=== PATIENT | male | born 1965 | race Caucasian/White ===

== ENCOUNTER 2022-12-14 17:42 | Inpatient (IN) | payer MEDICAID, SELFPAY ==
[2022-12-14 17:44] VITALS: BP 185/108; PULSE 108; RESP 18; TEMP 36.2; O2SAT 99; BMI 33.3
--- NOTE | 2022-12-14 17:56 | EDS_ITS ---
HPI History of Present Illness Chief Complaint: Cellulitis Detail of Chief Complaint: Right hand pain and swelling Informant: patient Narrative Narrative: Patient presents to the emergency department complaining of pain in his right hand as well as swelling. Patient states that his symptoms started when he woke up 3 days ago. Denies injury or trauma. He denies cuts or wounds to the hand. Patient went to urgent care and was referred to the ER. Patient denies any fever. He denies chills or sweats. Prior similar symptoms: No PFSH PFSH Medical History no medical history Home Medications NK 12/14/22 [History Last Taken Unknown] Allergy/AdvReac Type Severity Reaction Status Date / Time No Known Allergies Allergy Verified 12/14/22 17:44 Surgical History no surgical history Social History Smoking Status: Current every day smoker tobacco type: cigarettes ROS ROS ED Review of Systems ROS Unobtainable: other Constitutional Constitutional ED: Reports lethargy; Denies chills, fever(s), sweats or weight loss Eyes Eyes: Denies blurry vision, change in vision or diplopia ENT ENT ED: Denies rhinorrhea or sore throat Cardiovascular Cardiovascular: Denies chest pain, orthopnea or racing heartbeat Respiratory/Chest Respiratory/Chest: Denies cough, dyspnea, dyspnea on exertion, orthopnea or sputum Gastrointestinal Gastrointestinal: Denies abdominal pain, diarrhea, nausea or vomiting Genitourinary Genitourinary ED: Denies dysuria, hematuria or urinary frequency Musculoskeletal Musculoskeletal: Reports other Details: VascularRight hand-patient does have diffuse soft tissue swelling of the hand. He has significant tenderness over the third MCP joint dorsally and there is diffuse erythema to the hand. Patient having a hard time completely extending the digits of the hand secondary to pain and swelling. Distally. Patient has significant pain with passive extension of the middle finger. ; Denies arthralgias, back pain, myalgias or neck pain Integumentary Denies abscess, Abrasions or rash Neurologic Neurologic: Denies headache(s) or weakness Psychiatric Psychiatric: Denies anxiety, depression or suicidal thoughts Endocrine Endocrinology: Denies polydipsia, polyphagia or polyuria Hematologic/Lymphatic Hematologic/Lymphatic: Denies easy bleeding, easy bruising or lymphadenopathy Allergic/Immunologic Allergic/Immunologic ED: Denies mouth swelling, tongue swelling or urticaria EXAM Physical Exam Const Vital Signs: 12/14/22 17:44 Temperature 97.1 F L Temperature Source Temporal Pulse Rate 108 H Respiratory Rate 18 Blood Pressure 185/108 H Blood Pressure Mean 133 Pulse Ox 99 Oxygen Delivery Method Room Air MDM MDM MDM Narrative Medical decision making narrative: Patient presents to the emergency department with a swollen right hand x3 days. Clinically the hand looks infected. Patient had an IV line established. He was started on Zosyn IV. CBC with differential obtained showed a white count of 13.4, hemoglobin 15, hematocrit 45, platelets 262. Lactate was normal at 1.1. Chemistries unremarkable. Sed rate was 69 and CRP was 81.8. X-ray of the right hand obtained showed no foreign bodies or fractures. Patient case discussed with orthopedics on-call Dr. Dickerson who recommended admission for IV antibiotics and obtaining an MRI in the morning and he can see the patient in consultation. Case will be discussed with hospitalist to evaluate patient for admission. Lab Data Labs: Laboratory Results - last 24 hr 12/14/22 12/14/22 12/14/22 18:03 18:05 18:05 WBC 13.4 H RBC 4.62 Hgb 15.0 Hct 45.1 MCV 97.6 H MCH 32.5 H MCHC 33.3 RDW Std Deviation 49.2 H RDW Coeff of Lavern 13.6 Plt Count 262 MPV 10.2 Immature Gran % (Auto) 0.700 Neut % (Auto) 62.0 Lymph % (Auto) 21.9 Yancey % (Auto) 14.5 H Eos % (Auto) 0.4 Baso % (Auto) 0.5 Absolute Neuts (auto) 8.3 H Absolute Lymphs (auto) 2.94 Nucleated RBC % 0 Differential Comment SCANNED Diff Path Review February foll ESR 69 H Sodium 136 Potassium 4.0 Chloride 102 Carbon Dioxide 25.0 Anion Gap 9 BUN 22 H Creatinine 1.65 H Estim Creat Clear Calc 55.52 Est GFR (MDRD) Af Amer 56 L Est GFR (MDRD) Non-Af 46 L BUN/Creatinine Ratio 13.3 Glucose 122 H Lactic Acid 1.1 Calcium 10.2 H C-React Prot Ext Range 81.80 H Radiography Diagnostic Testing: Clinical Impression(s) from Imaging Studies Hand X-Ray 12/14/22 18:26 IMPRESSION: Minimal arthrosis of the hand. Electronically Signed: Merrill Platt DO at 18:48 EST , Discharge Plan Triage Chief Complaint: Cellulitis ED Provider: Maico Palomares Dx/Rx/DC Orders Clinical Impression: Cellulitis of hand, right, Extensor tenosynovitis of finger, Hand pain, right Prescriptions: No Action NK Primary Care Provider: Valentino Wright Referrals: Valentino Wright MD [Primary Care Provider] - Disposition Disposition: Acute Care Hospital [facility]
[2022-12-14 18:16] LABS: Absolute Lymphocyte Count 2.94 X10^3/uL (0.83-4.51); Absolute Neutrophil Count 8.3 X10^3/uL (2.0-7.7); Basophil# 0.07 X10^3/uL; Basophil% 0.5 % (0-1); Eosinophil# 0.05 X10^3/uL; Eosinophils% 0.4 % (0-5); Hematocrit 45.1 % (40-54); Lymphocyte # 2.94 X10^3/ul (0.83-4.51); Lymphocyte % 21.9 % (19-41); Mean Corp Hgb Conc 33.3 g/dL (32-36); Mean Corpuscular Hgb 32.5 pg (27.0-32.0); Mean Corpuscular Volume 97.6 fL (80-94); Mean Platelet Vol. 10.2 fl (6.2-12.0); Monocyte# 1.94 X10^3/uL; Monocyte% 14.5 % (0-10); NRBC Flagged by Analyzer 0 % (0-5); Neutrophil # 8.32 X10^3/uL (2.7-7.7); POSITIVE DIFFERENTIAL YES; Platelet Count 262 K/mm3 (150-450); RBC Distribution Width CV 13.6 % (11.6-14.6); RBC Distribution Width SD 49.2 fl (35.1-43.9); Red Blood Count 4.62 M/mm3 (4.6-6.2); White Blood Count 13.4 K/mm3 (4.4-11.0)
[2022-12-14 18:23] LABS: Differential Indicated SCAN CRITERIA MET
--- NOTE | 2022-12-14 18:26 | RAD_ITS ---
STUDY: X-RAY - RIGHT HAND REASON FOR EXAM: Male, 57 years old. Pain and swelling. Redness. TECHNIQUE: 3 view(s) of the hand. COMPARISON: None. FINDINGS: Normal radiocarpal articulation. Normal distal radioulnar joint. Normal visualized carpal bones. Normal carpal articulations There is degenerative arthrosis of the carpometacarpal (CMC) articulation of the thumb. Normal second through fifth carpometacarpal joints. Normal metacarpi. Normal metacarpophalangeal joint of the thumb. Normal interphalangeal joint of the thumb. Normal proximal and distal phalanges of the thumb. Normal metacarpophalangeal joints of the second through fifth fingers. Normal proximal and distal interphalangeal joints of the second through fifth fingers. Normal phalanges of the second through fifth fingers. The soft tissue structures are unremarkable. RAD/Hand Min 3 Views IMPRESSION: Minimal arthrosis of the hand. Electronically Signed: Merrill Platt DO at 18:48 EST ,
[2022-12-14 18:34] LABS: Anion Gap 9 (5-15); BUN 22 mg/dL (7-18); BUN/Creat Ratio 13.3 RATIO (10-20); Calcium,Total 10.2 mg/dL (8.5-10.1); Chloride 102 mmol/L (98-107); Creatinine, Serum 1.65 mg/dL (0.70-1.30); EST Glomerular Filtration Rate 46 mL/min (>60); Est Glom Filt Rate - Afr Amer 56 mL/min (>60); Estimated Creatinine Clearance 55.52 ml/min; Glucose 122 mg/dL (74-106); Sodium Level 136 mmol/L (136-145)
[2022-12-14 18:41] LABS: Lactic Acid 1.1 mmol/L (0.4-1.9)
[2022-12-14 18:48] LABS: Differential Comment SCANNED; Erythrocyte Sedimentation Rate 69 mm/hr (0-20)
--- NOTE | 2022-12-14 19:07 | HP.PCM_ITS ---
HPI - General General Date of Admission: 12/14/22 Date of Service: 12/14/22 Chief Complaint: R hand redness, pain, swelling. HPI Narrative The patient is a 57 y/o M w/ PMHx: Obesity, Tobacco use, EtOH abuse (6-8 beers 5x/week), Suspected likely underlying CKD stage III unclear subtype and and Suspected likely underlying untreated Hypertension who presents to the [facility] ED on 12/14/22 with history of onset of right hand discomfort and swelling starting approximately 3 days prior with no specific injury or trauma worsening over the course of these last 3 days prompting urgent care evaluation on day of presentation but given appearance prompted transition to the ED for more aggressive evaluation with no recent fever or chills. Patient has reported difficulty sleeping over the last 2 days secondary to the initially more severe right hand discomfort 6-7 out of 10 in severity. He does report that it feels mildly improved today and has been able to bend it a little bit more. Work-up in the ED included T97.1, heart rate 108, BP 185 or 108, respiratory rate 18, 99% on room air, CBC with WC 13.4, hemoglobin 15, platelet 262 with left shift, ESR 69, BMP with BUN/creatinine 22/1.65, glucose 122, lactic acid 1.1, CRP 81.80, plain film of the right hand with minimal arthrosis of the hand with no acute finding otherwise. In the ED patient administered IV Zosyn therapy. Given appearance and concern for infectious tenosynovitis ED discussed case with orthopedic surgery Dr. Dickerson who noted intention to evaluate the patient and potentially initiate additional imaging. Per discussion with the physician given concern for infectious tenosynovitis requested also vancomycin IV be administered. [facility] Medical History Alcohol abuse Tobacco use Medical History no medical history Home Medications NK 12/14/22 [History Last Taken Unknown] Allergy/AdvReac Type Severity Reaction Status Date / Time No Known Allergies Allergy Verified 12/14/22 17:44 Family History (Updated 12/14/22 @ 23:[address] Brenda Cantu MD) Mother Heart disease other (Patient reports not knowing any of his paternal biological history.) Surgical History (Updated 12/14/22 @ 23:[address] Brenda Cantu MD) No history of previous surgery Surgical History no surgical history Social History (Updated 12/14/22 @ 23:[address] Brenda Cantu MD) Smoking Status: Current every day smoker tobacco type: cigarettes Smoking packs per day: 1.5 Smoking cigarettes per day: 30.0 alcohol intake: current alcohol intake frequency: 3 or more drinks per day details: Drinks 6-8 beers 5x/week. substance use type: does not use ROS ROS Narrative Admission Review of Systems: CONSTITUTIONAL: No weight loss, fever, chills, + weakness or fatigue. HEENT: Eyes: No visual loss, blurred vision, double vision or yellow sclerae. Ears, Nose, Throat: No hearing loss, sneezing, congestion, runny nose or sore throat. SKIN: + R hand edema, discomfort, redness. CARDIOVASCULAR: No chest pain, chest pressure or chest discomfort, palpitations, edema, orthopnea, syncopal events. RESPIRATORY: No shortness of breath, cough or sputum, wheezing, hemoptysis. GASTROINTESTINAL: No anorexia, nausea, vomiting or diarrhea, abdominal pain, melena, BRBPR. GENITOURINARY: No dysuria, frequency, urgency or retention. NEUROLOGICAL: No headache, dizziness, syncope, paralysis, ataxia, numbness or tingling in the extremities, focal weakness, change in bowel or bladder control, seizure. MUSCULOSKELETAL: + muscle, back pain, joint pain or stiffness. HEMATOLOGIC: No anemia, bleeding or bruising. LYMPHATICS: No enlarged nodes. No history of splenectomy. PSYCHIATRIC: No history of depression or anxiety. ENDOCRINOLOGIC: No reports of sweating, cold or heat intolerance. No polyuria or polydipsia. ALLERGIES: No history of asthma, hives, eczema or rhinitis. Vital Signs Vital Signs Vital Signs: 12/14/22 17:44 Temperature 97.1 F L Temperature Source Temporal Pulse Rate 108 H Respiratory Rate 18 Blood Pressure 185/108 H Blood Pressure Mean 133 Pulse Ox 99 Oxygen Delivery Method Room Air Weight Weight: 245 lb 11.2 oz Body Mass Index (BMI) 33.3 Physical Exam Narrative Physical Examination: General: Awake, alert, oriented x 3 and cooperative, seated upright in the ED bed, fatigued, notes mild discomfort to the right hand but less severe than it had been. Skin: Normal color, normal turgor, no icterus, no cyanosis except for notable r ight hand erythema primarily dorsally to the wrist and extending on the dorsal fingers, edematous, some difficulty bending fingers, warm to touch, no fluctuant region. HEENT: AT/NC, EOMI, PERRLA, mildly dry MM, no carotid bruits or JVD noted. Lungs: Mildly diminished, greater bases, appropriate effort, no rales, ronchi or wheezing. Heart: Mildly tachycardic with regular rhythm; no gallop, rub audible. Abdomen: Soft, obese, NTTP, ND, distant normal BS, no HSM. Extremities: No cyanosis, no clubbing, see skin. Neurological: Patient awake, alert, oriented as noted, cognitive function intact; pupils equally reactive to light and accommodation, cranial nerves II- XII grossly normal, moving all 4 extremities except expected limitation right hand given acute presentation, no focal deficits, strength mildly global decreased. Psychiatric: Affect appears mildly fatigued, no acute evidence of depressive or anxiety feelings. Results Lab / Micro Data Result Diagrams: 12/14/22 18:05 12/14/22 18:05 Labs: Laboratory Results - last 24 hr 12/14/22 18:03: Lactic Acid 1.1 12/14/22 18:05: WBC 13.4 H, RBC 4.62, Hgb 15.0, Hct 45.1, MCV 97.6 H, MCH 32.5 H , MCHC 33.3, RDW Std Deviation 49.2 H, RDW Coeff of Lavern 13.6, Plt Count 262, MPV 10.2, Immature Gran % (Auto) 0.700, Neut % (Auto) 62.0, Lymph % (Auto) 21.9, [place] % (Auto) 14.5 H, Eos % (Auto) 0.4, Baso % (Auto) 0.5, Absolute Neuts (auto) 8.3 H, Absolute Lymphs (auto) 2.94, Nucleated RBC % 0, Differential Comment SCANNED, Diff Path Review February, ESR 69 H 12/14/22 18:05: Sodium 136, Potassium 4.0, Chloride 102, Carbon Dioxide 25.0, Anion Gap 9, BUN 22 H, Creatinine 1.65 H, Estim Creat Clear Calc 55.52, Est GFR (MDRD) Af Amer 56 L, Est GFR (MDRD) Non-Af 46 L, BUN/Creatinine Ratio 13.3, Glucose 122 H, Calcium 10.2 H, C-React Prot Ext Range 81.80 H Radiology Impression Hand X-Ray 12/14/22 18:26 IMPRESSION: Minimal arthrosis of the hand. Electronically Signed: Merrill Platt, DO at 18:48 EST Reading Location ID and State: [facility] / [place] Tel [phone], Service support , Assessment & Plan Assessment/Plan (1) Extensor tenosynovitis of finger: (2) Cellulitis of hand, right: PLAN: Plan The patient is a 57 y/o M w/ PMHx: Obesity, Tobacco use, EtOH abuse (6-8 beers 5x/week), Suspected likely underlying CKD stage III unclear subtype and and Suspected likely underlying untreated Hypertension who presents to the [facility] ED on 12/14/22 with history of onset of right hand discomfort and swelling starting approximately 3 days prior with no specific injury or trauma worsening over the course of these last 3 days prompting urgent care evaluation on day of presentation but given appearance prompted transition to the ED for more aggressive evaluation with no recent fever or chills. #1. Right Upper Extremity/hand Cellulitis with concern for infectious tenosynovitis: Will admit to [facility], maintain on IV Rocephin as well as IV vancomycin given concerns for infectious tenosynovitis, will maintain n.p.o. status after midnight in case of operative intervention needs, continue agg ressive hydration given concerns for possible AURORA and need for usage of vancomycin as noted, plan repeat CBC in AM, continue affected extremity elevation above heart when seated and in bed, monitor erythema outline with VS checks, will continue orthopedic surgery consultation, as needed pain regimen and antiemetic regimen. #2. Acute kidney injury versus chronic kidney disease stage III unclear s ubtype: Unclear baseline renal function is no labs prior, admission BUN/Cr 22/1.65. Will hydrate and plan repeat CMP in a.m. If no improvement would plan FeNa, urinalysis and renal ultrasound assessment. Given #3 suspect likely could have underlying untreated chronic kidney disease related to hypertensive disease but will need to reassess to see if blood pressure remains elevated and repeat labs in AM. #3. Elevated BP without hypertensive history: Significantly elevated blood pressure upon ED presentation, potentially related with acute presentation in pain however will closely monitor and if remains elevated despite pain control likely has underlying hypertension and would necessitate oral regimen initiation, as needed IV hydralazine in interim. #4. EtOH Abuse: Patient notes routine consumption of 6-8 beers per day 5 times weekly. Will maintain on CIWA protocol, MVI, thiamine and folic acid. Case management consulted. #5. Tobacco Abuse: Encouraged cessation, inpatient consultation per RT, NR if desired. #6. Obesity: Weight loss and lifestyle changes encouraged. #7. DVT prophylaxis: SCDs, hold chemoprophylaxis in case of OR needs in AM. #8. CODE STATUS: Full code. Admission Evaluation Time spent evaluating chart, patient history, patient evaluation, care planning and discussion with specialists: 75 minutes. Charges/Coding Visit Charges Inpatient E&M: 99559 Init Hosp L3
[2022-12-14 19:43] VITALS: BP 157/88; PULSE 98; RESP 18; TEMP 37; O2SAT 93
[2022-12-14 20:36] LABS: Magnesium 2.4 mg/dL (1.6-2.6); Phosphorus 3.9 mg/dL (2.5-4.9)
[2022-12-14 20:47] VITALS: BMI 32.9
[2022-12-14] MEDS: 0.9% Normal Saline 1,000 ML 999 ML IV (20:57)
--- NOTE | 2022-12-14 20:57 | PCM.RX.CS ---
Consult Pharmacy has been consulted to manage selected antiobiotic: Vancomycin Type of Consult: New start Suspected Infection: Skin/Soft tissue Labs: Sodium 136 mmol/L (136-145) 12/14/22 18:05 Potassium 4.0 mmol/L (3.5-5.1) 12/14/22 18:05 Chloride 102 mmol/L (98-107) 12/14/22 18:05 Carbon Dioxide 25.0 mmol/L (21.0-32.0) 12/14/22 18:05 Anion Gap 9 (5-15) 12/14/22 18:05 BUN 22 mg/dL (7-18) H 12/14/22 18:05 Creatinine 1.65 mg/dL (0.70-1.30) H 12/14/22 18:05 Est GFR (MDRD) Af Amer 56 mL/min (>60) L 12/14/22 18:05 Est GFR (MDRD) Non-Af 46 mL/min (>60) L 12/14/22 18:05 BUN/Creatinine Ratio 13.3 RATIO (10-20) 12/14/22 18:05 Glucose 122 mg/dL (74-106) H 12/14/22 18:05 Goal Trough: 15-20 mcg/mL Pharmacy Plan for Drug Dosing: NEW START IV VANCOMYCIN Consulting Physician: Dr. Cantu Indication: Cellulitis Goal Trough: 15-20 SrCr: 1.65 CrCl: 65.2mls/min (using an adjusted body weight of 91kg) Comments: pt received a 1750mg x1 dose in the ER on 12/14/22 at 1956 Vancomycin Dose: based on pts weight and renal function, recommend an initial dose of 1500mg q12h starting 12/15/22 at 0800. trough prior to the 4th total dose Pending Level: 12/16/22 at 0730 Pharmacy Service will continue to monitor and adjust dosing as required. Follow-Up Labs: Trough Vancomycin - 12/16/22 at 0730
[2022-12-14 20:59] VITALS: BP 156/79; PULSE 94; RESP 18; TEMP 37.5; O2SAT 96
[2022-12-14 21:00] VITALS: BMI 33.2
[2022-12-14] MEDS: 0.9% Normal Saline 1,000 ML 125 ML IV (22:03)
[2022-12-15] MEDS: Acetaminophen 325 MG Tablet 650 MG PO (00:28)
[2022-12-15] MEDS: oxyCODONE 5 MG Tablet PO (00:28)
[2022-12-15 02:59] VITALS: BP 138/69; PULSE 78; RESP 18; TEMP 36.8; O2SAT 93
[2022-12-15] MEDS: 0.9% Normal Saline 1,000 ML 125 ML IV (05:47)
[2022-12-15 06:00] VITALS: BMI 33.2
--- NOTE | 2022-12-15 06:00 | EKG12_ITS ---
Test Reason : AM EKG Blood Pressure : / mmHG Vent. Rate : 078 BPM Atrial Rate : 078 BPM P-R Int : 146 ms QRS Dur : 114 ms QT Int : 418 ms P-R-T Axes : 062 -46 -23 degrees QTc Int : 476 ms Normal sinus rhythm Left anterior fascicular block Abnormal ECG Confirmed by SHABNAM COSTA, UMANG ([id number]), non linear editor LESLI FLORES ([id number]) on 12/16/2022 9:13:15 AM Referred By: CHRISTEL Confirmed By:UMANG HAQUE MD
[2022-12-15 06:09] LABS: Absolute Lymphocyte Count 2.93 X10^3/uL (0.83-4.51); Absolute Neutrophil Count 6.2 X10^3/uL (2.0-7.7); Basophil# 0.05 X10^3/uL; Basophil% 0.4 % (0-1); Eosinophil# 0.13 X10^3/uL; Eosinophils% 1.2 % (0-5); Hematocrit 41.2 % (40-54); Hemoglobin 13.4 g/dL (13.0-16.5); Lymphocyte # 2.93 X10^3/ul (0.83-4.51); Lymphocyte % 26.1 % (19-41); Mean Corp Hgb Conc 32.5 g/dL (32-36); Mean Corpuscular Hgb 32.1 pg (27.0-32.0); Mean Corpuscular Volume 98.8 fL (80-94); Mean Platelet Vol. 10.1 fl (6.2-12.0); NRBC Flagged by Analyzer 0 % (0-5); Neutrophil # 6.22 X10^3/uL (2.7-7.7); Neutrophil % 55.5 % (47-70); POSITIVE DIFFERENTIAL YES; Platelet Count 218 K/mm3 (150-450); RBC Distribution Width CV 13.6 % (11.6-14.6); RBC Distribution Width SD 49.5 fl (35.1-43.9); Red Blood Count 4.17 M/mm3 (4.6-6.2); White Blood Count 11.2 K/mm3 (4.4-11.0)
[2022-12-15 06:19] LABS: Prothrombin Time (Protime)PT. 13.4 SECONDS (11.7-14.9)
[2022-12-15 06:20] LABS: Partial Thromboplast Time 32.1 Seconds (24.1-36.2)
[2022-12-15 06:23] LABS: Differential Indicated SCAN CRITERIA MET
[2022-12-15 06:25] LABS: Macrocytosis 1+
[2022-12-15 06:44] LABS: ALB/GLOB Ratio 0.9 RATIO (0.9-2.4); AST(SGOT) 43 U/L (15-37); Alanine Aminotransfer ALT/SGPT 42 U/L (16-61); Albumin, Serum 3.1 g/dL (3.2-5.0); Alkaline Phosphatase 81 U/L (45-117); Anion Gap 5 (5-15); BUN 15 mg/dL (7-18); BUN/Creat Ratio 16.6 RATIO (10-20); Bilirubin, Direct 0.19 mg/dL (0.00-0.30); Calcium,Total 8.8 mg/dL (8.5-10.1); Chloride 111 mmol/L (98-107); Creatinine, Serum 0.91 mg/dL (0.70-1.30); EST Glomerular Filtration Rate 92 mL/min (>60); Est Glom Filt Rate - Afr Amer 112 mL/min (>60); Estimated Creatinine Clearance 100.67 ml/min; Globulin 3.6 g/dL (2.2-4.2); Glucose 103 mg/dL (74-106); Potassium 3.8 mmol/L (3.5-5.1); Protein, Total 6.7 g/dL (6.4-8.2); Sodium Level 140 mmol/L (136-145)
--- NOTE | 2022-12-15 07:13 | PN.HOSP_ITS ---
Reason for Visit Reason for Visit: Diagnoses Cellulitis of right upper limb (12/14/22) Other synovitis and tenosynovitis, unspecified hand (12/14/22) Subjective Subjective Follow-up for right hand cellulitis. Objective Data Objective Data Vital Signs: Vital Signs Temp Pulse Resp BP Pulse Ox O2 Del Method 98.2 F 78 18 138/69 H 93 Room Air 12/15/22 02:59 12/15/22 02:59 12/15/22 02:59 12/15/22 02:59 12/15/22 02:59 12/15/22 03:00 Oxygen Delivery Method Room Air Weight: 245 lb 2.464 oz Body Mass Index (BMI) 33.2 Intake & Output: Intake and Output for Last 24 Hours 12/13/22 12/14/22 12/15/22 23:59 23:59 23:59 Intake Total 1635 / 2435 1766.67 / 1766.67 Balance 1635 / 2435 1766.67 / 1766.67 Lab / Micro Data Result Diagrams: 12/15/22 05:40 12/15/22 05:40 Labs: Laboratory Results - last 24 hr 12/14/22 18:03: Lactic Acid 1.1 12/14/22 18:05: WBC 13.4 H, RBC 4.62, Hgb 15.0, Hct 45.1, MCV 97.6 H, MCH 32.5 H , MCHC 33.3, RDW Std Deviation 49.2 H, RDW Coeff of Lavern 13.6, Plt Count 262, MPV 10.2, Immature Gran % (Auto) 0.700, Neut % (Auto) 62.0, Lymph % (Auto) 21.9, [place] % (Auto) 14.5 H, Eos % (Auto) 0.4, Baso % (Auto) 0.5, Absolute Neuts (auto) 8.3 H, Absolute Lymphs (auto) 2.94, Nucleated RBC % 0, Differential Comment SCANNED, Diff Path Review February, ESR 69 H 12/14/22 18:05: Sodium 136, Potassium 4.0, Chloride 102, Carbon Dioxide 25.0, Anion Gap 9, BUN 22 H, Creatinine 1.65 H, Estim Creat Clear Calc 55.52, Est GFR (MDRD) Af Amer 56 L, Est GFR (MDRD) Non-Af 46 L, BUN/Creatinine Ratio 13.3, Glucose 122 H, Calcium 10.2 H, C-React Prot Ext Range 81.80 H 12/14/22 18:05: Phosphorus 3.9, Magnesium 2.4 12/15/22 05:40: WBC 11.2 H, RBC 4.17 L, Hgb 13.4, Hct 41.2, MCV 98.8 H, MCH 32.1 H, MCHC 32.5, RDW Std Deviation 49.5 H, RDW Coeff of Lavern 13.6, Plt Count 218, MPV 10.1, Immature Gran % (Auto) 0.800, Neut % (Auto) 55.5, Lymph % (Auto) 26.1, [place] % (Auto) 16.0 H, Eos % (Auto) 1.2, Baso % (Auto) 0.4, Absolute Neuts (auto) 6.2, Absolute Lymphs (auto) 2.93, Nucleated RBC % 0, Diff Path Review February, Macrocytosis 1+ 12/15/22 05:40: Sodium 140, Potassium 3.8, Chloride 111 H, Carbon Dioxide 24.0, Anion Gap 5, BUN 15, Creatinine 0.91, Estim Creat Clear Calc 100.67, Est GFR (MDRD) Af Amer 112, Est GFR (MDRD) Non-Af 92, BUN/Creatinine Ratio 16.6, Glucose 103, Calcium 8.8, Total Bilirubin 0.60, Direct Bilirubin 0.19, AST 43 H, ALT 42, Alkaline Phosphatase 81, Total Protein 6.7, Albumin 3.1 L, Globulin 3.6, Albumin/Globulin Ratio 0.9 12/15/22 05:40: PT 13.4, INR 1.0, APTT 32.1 Radiography Diagnostic Testing: Radiology Impression Hand X-Ray 12/14/22 18:26 IMPRESSION: Minimal arthrosis of the hand. Electronically Signed: Merrill Platt DO at 18:48 EST Reading Location ID and State: [address] [place] [address] Tel [phone], Service support , Physical Exam Narrative Seen and examined. Patient works with metal, welding. Patient denies any injury or splinter in his knowledge. No fever or chills. Right hand swelling little better than at the time of admission as per the patient. Physical exam General: Alert, Oriented x3, Cooperative HEENT: Atraumatic, PERRLA, EOMI, Normocephalic Oral: No Gingival or Mucosal Lesions/ Ulcerations Neck: Supple, No JVD, Negative Carotid Bruits Lungs: Air entry diminished in bilateral lung bases. No crepitation/rhonchi Cardiovascular: Regular rate, Regular Rhythm, Normal S1, Normal S2, No murmurs Abdomen: Bowel Sounds Present, Soft, Non Tender, Non-Distended : No renal angle tenderness. No suprapubic tenderness. Extremities: No edema, Capillary Refill Less than 3 Seconds Skin: Mild redness erythema present over dorsal aspect of hand Musculoskeletal: Swelling of right hand mainly on the dorsal aspect including fingers. Mild flexion but cannot make a fist. Radial and ulnar artery palpable. Neurological: Cranial nerves II-XII grossly intact, DTR 2+/4 and Symmetrical, Neuro grossly intact Psych/Mental Status: Normal Affect, Appropriate. Assessment & Plan Assessment/Plan (1) Extensor tenosynovitis of finger: (2) Cellulitis of hand, right: PLAN: Plan The patient is a 57 y/o M is being admitted on 12/14/22 for right hand discomfort and swelling for over 3 days consistent with hand cellulitis/infectious tenosynovitis #1. Right Upper Extremity/hand Cellulitis with concern for infectious tenosynovitis: Spontaneous onset with progression over 3 days, no fever or chill or inciting trigger/trauma. Tmax 99.5 Fahrenheit. On IV antibiotic ceftriaxone and vancomycin, orthopedic surgery consulted, limb elevation, pain control and other supportive treatment. #2. Acute kidney injury: Unclear baseline renal function is no labs prior, admission BUN/Cr 22/1.65. Patient on IV fluid. BUN/creatinine improved from 22/1.65-15/0.91. AURORA resolved. With rapid recovery it seems patient had AURORA most probably due to prerenal etiology #3. Elevated BP without hypertensive history: BP has improved. Patient will need either home BP monitoring or a BP or diagnosis of hold for SBP less than 130 mmHg #4. EtOH Abuse: Patient notes routine consumption of 6-8 beers per day 5 times weekly. Monitor with CIWA protocol, MVI, thiamine and folic acid. Case management consulted. #5. Tobacco Abuse: Encouraged cessation, inpatient consultation per RT, NR if desired. #6. Obesity: Weight loss and lifestyle changes encouraged. #7. DVT prophylaxis: SCDs, enoxaparin 40 mg subcu daily. #8. CODE STATUS: Full code. Charges/Coding Visit Charges Inpatient E&M: 78936 Subs Hosp L2
[2022-12-15 07:44] VITALS: O2SAT 93
--- NOTE | 2022-12-15 07:44 | MRI_ITS ---
STUDY: MRI RIGHT HAND REASON FOR EXAM: Male, 57 years old. Cellulitis, swelling, infected hand -- whole right hand TECHNIQUE: Standardized fat and water weighted pulse sequences were obtained in all 3 orthogonal planes. COMPARISON: X-ray December 14, 2022 FINDINGS: FIRST DIGIT: There is arthrosis at the first carpometacarpal articulation. There is increased T2 signal at the base of the first metacarpal cystic change or prior surgery. There is mild joint space narrowing and spurring at the metacarpophalangeal joint. Normal interphalangeal joint. Normal proximal, and distal phalanges. Normal flexor and extensor tendons. There is no soft tissue abnormality. SECOND DIGIT: Normal visualized second metacarpus. There is small joint effusion of the metacarpophalangeal joint. Normal proximal interphalangeal joint. . There is joint space narrowing and spurring of the distal interphalangeal joint. Normal proximal, middle and distal phalanges. Normal flexor and extensor tendons. There is no soft tissue abnormality. THIRD DIGIT: There is cyst of the third metacarpal head. There is joint effusion of the metacarpophalangeal joint. Normal proximal interphalangeal joint. There is joint space narrowing and spurring of the distal interphalangeal joint. Normal proximal, middle and distal phalanges. Normal flexor and extensor tendons. There is no soft tissue abnormality. FOURTH DIGIT: Normal visualized fourth metacarpus. Normal metacarpophalangeal joint. Normal proximal and distal interphalangeal joints. Normal proximal, middle and distal phalanges. Normal flexor and extensor tendons. There is no soft tissue abnormality. FIFTH DIGIT: Normal visualized fifth metacarpus. Normal metacarpophalangeal joint. Normal proximal interphalangeal joint. . There is joint space narrowing and spurring of the distal interphalangeal joint. Normal proximal, middle and distal phalanges. Normal flexor and extensor tendons. There is no soft tissue abnormality. There is subcutaneous edema of the dorsum of the hand Normal visualized thenar and hypothenar muscles. Normal lumbricalis and interosseous muscles. There are no solid, cystic or lipomatous masses. MRI/Upper Ext/No Jt/ wo IMPRESSION: Arthritic change. Soft tissue swelling. Effusions at the metacarpophalangeal joints. No MR evidence of osteomyelitis. Electronically Signed: Ruel Lee MD at 18:53 EST ,
[2022-12-15] MEDS: Multivitamins,Ther W-Minerals Tablet 1 TABLET PO (08:43)
[2022-12-15] MEDS: Folic Acid 1 MG Tablet PO (08:43)
[2022-12-15] MEDS: Thiamine Hydrochloride 100 MG Tablet PO (08:43)
[2022-12-15 08:48] VITALS: BP 143/76; PULSE 78; RESP 18; TEMP 36.8; O2SAT 95
--- NOTE | 2022-12-15 11:00 | RAD_ITS ---
STUDY: X-RAY - ORBITS REASON FOR EXAM: Male, 57 years old. MRI question TECHNIQUE: 2 view(s) of the orbits were obtained. COMPARISON: None. FINDINGS: Normal bilateral orbits without a metallic orbital foreign body. Normal visualized facial bones. Normal paranasal sinuses. The soft tissue structures are unremarkable. RAD/Orbits for Foreign Body IMPRESSION: No demonstrated metallic orbital foreign body. The patient is cleared for an MRI examination. Electronically Signed: Oseas Stephenson MD at 11:15 EST ,
--- NOTE | 2022-12-15 11:34 | CASEMGMT ---
Social Work SW met with pt following consult for Etoh abuse. SW introduced self and role at the hospital and asked if pt was open to discussion on alcohol use. Pt agreed to speak with SW and discussed that pt had been thinking for the past few months about trying to get sober. SW assessed pt Etoh use through questions relating to frequency of use, patterns around use, connections to Mental health of trauma and if pt is experiencing and physical health issues related to the alcohol use. Pt reports has been drinking on and off for the past 35+ years. Pt stated did get sober in 2011 for about a year or so before starting drinking again. Pt denied family history of use and did not indicate any specific patterns/triggers/stressors that contribute to drinking. Pt denied MH and physical health issues that would be linked to alcohol use. Pt stated drinks alone and socially in friend groups. Pt reports when sober years ago pt was working a program and had support from friends at AA meetings. Pt feels would be able to return to this support group and get help if wanted. Pt was agreeable to accepting resources for addiction and stated would review and possibly think about reaching out to support at [facility] for treatment. Ekaterina Grove, KAMALJIT
[2022-12-15 11:35] LABS: Pathologist Review Reviewed
[2022-12-15 11:35] LABS: Pathologist Review Reviewed
--- NOTE | 2022-12-15 11:40 | CASEMGMT ---
ANTONIETA CURIEL Assessment: Face to Face with pt for initial transition planning/care coordination assessment. RN MOISÉS introduced self and role at [facility], pt voices understanding and consents to assessment. Pt is A/O x4 and answers all questions appropriately at this time. Pt sitting up in bed with nurse at bedside. Care providers, pharmacy, and demographics verified/updated. Admitting Dx: R hand infectious tenosynovitis PCP:Pt denies having, pt provided with a local healthcare directory. Specialists:amira Wright Pharmacy: [facility] Insurance: [facility]- Pt states he just found out that he has insurance lastnight. Prescription Benefit: yes, pt is unsure LNOK: Lior Trimble, brother Living Arrangements: Pt lives with 2 adult children in a two story home with 2 steps to enter. Pt reports he is I in ADL' s and denies concerns at home. Transportation: Pt drives self and denies concerns with transportation. DME/HHC/SNF: Pt denies having any DME in the home, previous HHC or SNF stays. Pt states no concerns with going home at time of dc. Pt states no further concerns/needs. CM to follow. Advised pt to ask CM if any further question/concerns/needs arise, voices understanding. Pt Goal: Home Plan: Home
--- NOTE | 2022-12-15 12:35 | CON.PCM_ITS ---
Assessment & Plan Assessment/Plan (1) Cellulitis of hand, right: PLAN: Plan Patient has a cellulitis of his right hand he has responded very well to IV antibiotics he will likely just need continuation of oral antibiotics upon discharge, we did order an MRI to rule out any deep infection. Further recommendations to follow MRI, continue current care encourage finger range of motion. HPI Consult Data Date of Consult: 12/15/22 HPI Narrative HPI Narrative: TRACIE SAUNDERS, is a 57 M who presented to the emergency room with right hand pain and swelling and redness on the dorsum he states it began in the morning 12/12/2022 started mostly over second and third metacarpophalangeal joints dorsally and the swelling subsequently spread over the dorsum of his hand. He denies any trauma or scratches denies history of gout or recent infections. He was admitted and started on IV antibiotics and the area of swelling and redness and pain has dramatically decreased in less than 24 hours. He denies any palmar sided pain or symptoms. No fevers or chills. He did have an elevated white blood cell count on admission which is subsequently come down from 13.4 to 11.2 there was no left shift he did have an of elevated inflammatory markers. X-ray was unremarkable. [facility] Medical History Alcohol abuse Tobacco use Medical History no medical history Home Medications NK 12/14/22 [History Last Taken Unknown] Allergy/AdvReac Type Severity Reaction Status Date / Time No Known Allergies Allergy Verified 12/14/22 17:44 Family History (Updated 12/14/22 @ 23:[address] Brenda Cantu MD) Mother Heart disease Family History other Surgical History (Updated 12/14/22 @ 23:[address] Brenda Cantu MD) No history of previous surgery Surgical History no surgical history Social History (Updated 12/14/22 @ 23:[address] Brenda Cantu MD) Smoking Status: Current every day smoker tobacco type: cigarettes Smoking packs per day: 1.5 Smoking cigarettes per day: 30.0 alcohol intake: current alcohol intake frequency: 3 or more drinks per day details: Drinks 6-8 beers 5x/week. substance use type: does not use Physical Exam Const alert, oriented x3 and no apparent distress HEENT normocephalic and head/scalp atraumatic Extremity Extremity Narrative: The right hand was demarcated with a sharpie from the emergency room and the area of redness has dramatically decreased in intensity and size swelling is also improved according to the patient. He has no volar tenderness he is able t o flex and extend the digits however there is stiffness and pain dorsally he is nontender over the extensor compartments of his wrist nor is or any swelling in these areas or over the radiocarpal joint area of maximum involvement is the MCP of the index and middle finger there is no fluctuance however there is significant swelling and tenderness to these joints. There is no open wounds his compartments are soft. Lab / Micro Data Result Diagrams: 12/15/22 05:40 12/15/22 05:40 Labs: Laboratory Results - last 24 hr 12/14/22 18:03: Lactic Acid 1.1 12/14/22 18:05: WBC 13.4 H, RBC 4.62, Hgb 15.0, Hct 45.1, MCV 97.6 H, MCH 32.5 H , MCHC 33.3, RDW Std Deviation 49.2 H, RDW Coeff of Lavern 13.6, Plt Count 262, MPV 10.2, Immature Gran % (Auto) 0.700, Neut % (Auto) 62.0, Lymph % (Auto) 21.9, [place] % (Auto) 14.5 H, Eos % (Auto) 0.4, Baso % (Auto) 0.5, Absolute Neuts (auto) 8.3 H, Absolute Lymphs (auto) 2.94, Nucleated RBC % 0, Differential Comment SCANNED, Diff Path Review Reviewed, ESR 69 H 12/14/22 18:05: Sodium 136, Potassium 4.0, Chloride 102, Carbon Dioxide 25.0, Anion Gap 9, BUN 22 H, Creatinine 1.65 H, Estim Creat Clear Calc 55.52, Est GFR (MDRD) Af Amer 56 L, Est GFR (MDRD) Non-Af 46 L, BUN/Creatinine Ratio 13.3, Glucose 122 H, Calcium 10.2 H, C-React Prot Ext Range 81.80 H 12/14/22 18:05: Phosphorus 3.9, Magnesium 2.4 12/15/22 05:40: WBC 11.2 H, RBC 4.17 L, Hgb 13.4, Hct 41.2, MCV 98.8 H, MCH 32.1 H, MCHC 32.5, RDW Std Deviation 49.5 H, RDW Coeff of [place]vern 13.6, Plt Count 218, MPV 10.1, Immature Gran % (Auto) 0.800, Neut % (Auto) 55.5, Lymph % (Auto) 26.1, [place] % (Auto) 16.0 H, Eos % (Auto) 1.2, Baso % (Auto) 0.4, Absolute Neuts (auto) 6.2, Absolute Lymphs (auto) 2.93, Nucleated RBC % 0, Diff Path Review Reviewed, Macrocytosis 1+ 12/15/22 05:40: Sodium 140, Potassium 3.8, Chloride 111 H, Carbon Dioxide 24.0, Anion Gap 5, BUN 15, Creatinine 0.91, Estim Creat Clear Calc 100.67, Est GFR (MDRD) Af Amer 112, Est GFR (MDRD) Non-Af 92, BUN/Creatinine Ratio 16.6, Glucose 103, Calcium 8.8, Total Bilirubin 0.60, Direct Bilirubin 0.19, AST 43 H, ALT 42, Alkaline Phosphatase 81, Total Protein 6.7, Albumin 3.1 L, Globulin 3.6, Albumin/Globulin Ratio 0.9 12/15/22 05:40: PT 13.4, INR 1.0, APTT 32.1 12/15/22 05:40: Uric Acid 7.0 Radiology Impression Hand X-Ray 12/14/22 18:26 IMPRESSION: Minimal arthrosis of the hand. Electronically Signed: Merrill Platt DO at 18:48 EST Reading Location ID and State: [facility] / [place] Tel [phone], Service support , Orbit X-Ray 12/15/22 11:00 IMPRESSION: No demonstrated metallic orbital foreign body. The patient is cleared for an MRI examination. Electronically Signed: Oseas Stephenson MD at 11:15 EST Reading Location ID and State: [facility] / [place] , Service support ,
[2022-12-15 14:00] VITALS: BP 162/80; PULSE 78; RESP 18; TEMP 37.1; O2SAT 99
[2022-12-15] MEDS: Enoxaparin 40 MG/0.4 ML Syringe SC (17:45)
[2022-12-15 17:50] VITALS: BP 171/91; PULSE 89; RESP 18; TEMP 36.3; O2SAT 97
[2022-12-15 21:27] VITALS: BP 144/85; PULSE 85; RESP 16; TEMP 36.8; O2SAT 95
[2022-12-16 02:38] VITALS: BMI 33.3
[2022-12-16 05:17] VITALS: BP 159/93; PULSE 87; RESP 16; TEMP 36.8; O2SAT 96
[2022-12-16] MEDS: Lactated Ringers 1,000 ML 15 ML IV (07:03)
[2022-12-16 07:05] VITALS: BMI 33.3
--- NOTE | 2022-12-16 07:56 | MISC_PTH ---
PATIENT: TRACIE SAUNDERS LOC: MS3 U#:[id number] AGE/SX: 57/M ROOM: [facility] [place] RE12/14/[address]: Dr. Paul Michael MD : 1965 BED: 1 DIS: 12/16/2022 SPEC #: [id number] RECD: 12/16/22 08:50 STATUS: FROY REQ #: [id number] BRITTANY: 12/16/22 07:[address]: Paul Dickerson DEPT: SURGICAL PATHOLOGY RECD BY: Adeline Salcedo ENTERED: 12/16/22 08:51 SP TYPE: MISC OTHR DR: MD Dr. Valentino Garcia MD Dr. Joseph Borruso, DO Dr. Prakash Chand, MD Tissues: Joint of hand, NOS Procedures: Surgery Specimen Level III Cytology Other Comments: @ Ordering doctor for SUIV edited from to DR.JBORRU Villegas by JAYCE at 12/16/22921 @ Ordering doctor for CYOTHER edited from to DR.JBORRU Villegas by JAYCE at 12/16/22921 @ Submitting doctor edited from to DR.JBORRU Nelly EDUARDO at 12/16/22921 HEADER OPERATION: Septic arthritis washout middle and index fingers PRE-OP DIAGNOSIS: Cellulitis of right hand TISSUE SUBMITTED: Right hand MICROSCOPIC DIAGNOSIS Right hand tissue, middle and index fingers: Fragments of fibroconnective tissue with acute and chronic inflammation and granulation tissue reaction. See comment. SJ:rg 12/17/2022 COMMENT The specimen is evaluated at the time of crystal examination by Dr. Glez. Immediate Evaluation = Numerous monosodium urate crystals are noted. Results are reported to Dr. Dickerson on 12/16/2022. MICROSCOPIC DESCRIPTION Slides are reviewed. GROSS DESCRIPTION Received in fixative is one container labeled with the patient's name and designated right hand tissue for crystal. The specimen consists of multiple irregular fragments of bowden soft tissue mixed with whitish amorphous material that in aggregate measure 1.0 x 0.3 x 0.1 cm. The specimen is totally submitted in one cassette. Two smears are prepared for crystal examination. / AMBER:aicha 12/16/2022 TC:2 CPT: 27910, 68357
[2022-12-16 07:58] LABS: Vancomycin, Trough Level 14.5 ug/mL (5.0-15.0)
[2022-12-16] MEDS: Bupivacaine 0.5% PF 10 ML VIAL (08:00)
--- NOTE | 2022-12-16 08:23 | OP.PCM_ITS ---
Operative Report Preoperative diagnosis: Right hand cellulitis with septic index and middle finger MCP joint Postoperative diagnosis: Same possible gout Specimen :culture fluid and tissue for crystal analysis Procedure: Open washout of right hand index and middle MCP joint Anesthesia: General EBL: None Complications: None Condition: Stable to PACU Indication for procedure: 57-year-old male with no history of gout and no recent injuries began having pain redness and swelling in his right hand 12/12/2022 patient presented to the emergency room on 12/14/2022 and was found to have a cellulitis in the emergency room and was admitted for IV antibiotics due to the amount of swelling and pain he was started on IV vancomycin and ceftriaxone his area of redness was demarcated in the emergency room and he responded very quickly with decrease in swelling and redness and intensity in less than 24 hours. His uric acid was normal he had no left shift however but very high elevated inflammatory markers. I was consulted and saw the patient on 12/15/2022 and MRI was ordered results were obtained in the evening of 12/15/2022. It did demonstrate joint effusion in the index and middle MCP joint, patient had eaten a large dinner within the hour we discussed proceeding to the OR for washout of these joints that evening with the risk of aspiration with his recent meal or waiting until the morning patient understand the risks and benefits of both and wished to proceed in the morning. risk benefits and alternatives were reviewed including risk of bleeding infection nerve, artery, bone, tissue damage, postinfectious arthritis, blood clot need for further surgery and continued pain. Procedure: Patient was met in the preoperative holding area once again the operative extremity was marked and identified by both patient and physician patient was brought back to the operating room wheeled cart transfer the upper table supine position. Patient was prepped and draped in usual sterile fashion. A timeout was called ensure the proper patient procedure extremity being contemplated. A tourniquet was inflated a 15 blade scalpel was used to make a linear incision on the dorsal of his hand between the index and middle MCP joints this was carried down through the skin and subcutaneous dissection was carried down with attention to avoid injury to the dorsal branches of the digital nerve and artery was no abscess in the subcutaneous tissue joint was identified and was opened with a [place] blade and there was immediate cloudy fluid came out this cold this was sent for culture, this was not purulent. There is also white substance consistent with crystal deposition that was sent for crystal analysis the procedure was repeated through the same incision for the index MCP there was similar but less fluid upon opening the joint. Both joints with very thoroughly irrigated with several liters of pulse lavage irrigation and the skin was closed with 4-0 nylon horizontal mattress stitches dressing was applied the form of Xeroform 4 x 4 web roll and an Federico wrap. All counts were correct patient tolerated procedure well he was transferred the PACU in stable condition.
[2022-12-16 08:24] VITALS: BP 153/88; BP 156/79; PULSE 94; RESP 16; TEMP 36.2; O2SAT 95
[2022-12-16 08:30] VITALS: BP 156/79; BP 156/94; PULSE 89; RESP 16; O2SAT 94
[2022-12-16 08:45] VITALS: BP 145/90; BP 156/79; PULSE 81; RESP 16; TEMP 36.6; O2SAT 96
--- NOTE | 2022-12-16 08:52 | PCM.PN.ORT ---
Subjective Subjective Postop note seen in recovery room patient doing well pain controlled moving fingers Objective Data Objective Data Vital Signs: Vital Signs Temp Pulse Resp BP Pulse Ox O2 Del Method 97.9 F 81 16 145/90 H 96 Room Air 12/16/22 08:45 12/16/22 08:45 12/16/22 08:45 12/16/22 08:45 12/16/22 08:45 12/16/22 08:45 Oxygen Delivery Method Room Air Weight: 245 lb 9.519 oz Body Mass Index (BMI) 33.3 Intake & Output: Intake and Output for Last 24 Hours 12/14/22 12/15/22 12/16/22 23:59 23:59 23:59 Intake Total 1635 / 2435 3876.67 / 3876.67 50 / 50 Balance 1635 / 2435 3876.67 / 3876.67 50 / 50 Lab / Micro Data Result Diagrams: 12/15/22 05:40 12/15/22 05:40 Labs: Laboratory Results - last 24 hr 12/14/22 18:05: Diff Path Review Reviewed 12/15/22 05:40: Diff Path Review Reviewed 12/16/22 07:05: Vancomycin Trough 14.5 Radiography Diagnostic Testing: Radiology Impression Upper Extremity MRI 12/15/22 07:44 IMPRESSION: Arthritic change. Soft tissue swelling. Effusions at the metacarpophalangeal joints. No MR evidence of osteomyelitis. Electronically Signed: Ruel Lee MD at 18:53 EST , Orbit X-Ray 12/15/22 11:00 IMPRESSION: No demonstrated metallic orbital foreign body. The patient is cleared for an MRI examination. Electronically Signed: Oseas Stephenson MD at 11:15 EST , Physical Exam Const alert and oriented x3 General Appearance: cooperative Extremity Extremity Narrative: Right hand dressing clean dry intact. Wrist capillary refill all digits. Assessment & Plan Assessment/Plan (1) Septic arthritis of hand, right: PLAN: Plan Postop day #0 washout right index and middle MCP joint, intraoperative fluid cultures taken x2 as well as tissue for crystalline deposition gross appearance consistent with gout. On further discussion with the patient although initially denying any gout history he states that not too long ago he had a very painful swollen left great toe that resolved on its own he does drink about 6-8 drinks per day about 5 days a week. I will have my office fax over a gout dietary sheet for him to follow. Speak with Dr. Michel about antibiotic management. He should leave his dressing on clean and dry for the next 72 hours then may remove and wash gently with antibacterial soap and warm water but do not submerge encourage immediate finger range of motion, As he was significantly stiff preoperatively the surgery will also add to the stiffness. No heavy lifting must keep clean. He should have his sutures removed in 2 weeks.
--- NOTE | 2022-12-16 09:18 | PCM.RX.CS ---
Consult Pharmacy has been consulted to manage selected antiobiotic: Vancomycin Type of Consult: Follow-up Suspected Infection: Skin/Soft tissue Prior Doses of Antibiotics Received/Current Regimen: 12/14/22195512/15/22 @9438,0712 Labs: Sodium 140 mmol/L (136-145) 12/15/22 05:40 Potassium 3.8 mmol/L (3.5-5.1) 12/15/22 05:40 Chloride 111 mmol/L (98-107) H 12/15/22 05:40 Carbon Dioxide 24.0 mmol/L (21.0-32.0) 12/15/22 05:40 Anion Gap 5 (5-15) 12/15/22 05:40 BUN 15 mg/dL (7-18) 12/15/22 05:40 Creatinine 0.91 mg/dL (0.70-1.30) 12/15/22 05:40 Est GFR (MDRD) Af Amer 112 mL/min (>60) 12/15/22 05:40 Est GFR (MDRD) Non-Af 92 mL/min (>60) 12/15/22 05:40 BUN/Creatinine Ratio 16.6 RATIO (10-20) 12/15/22 05:40 Glucose 103 mg/dL (74-106) 12/15/22 05:40 Vancomycin Trough 14.5 ug/mL (5.0-15.0) 12/16/22 07:05 Weight used for dosin.4 kg Estimated Creatinine Clearance: 119.7 Goal Trough: 15-20 mcg/mL Pharmacy Plan for Drug Dosing: Increase dose to 1750mg q12h due to trough being to 14.5 Pharmacy Service will continue to monitor and adjust dosing as required. Follow-Up Labs: Trough Vancomycin Labs to be done on [date and time ordered]: 12/17/22 @ 5987
[2022-12-16 09:21] VITALS: BP 151/92; PULSE 78; RESP 18; TEMP 36.4; O2SAT 95
[2022-12-16] MEDS: Thiamine Hydrochloride 100 MG Tablet PO (09:27)
[2022-12-16] MEDS: Multivitamins,Ther W-Minerals Tablet 1 TABLET PO (09:27)
[2022-12-16] MEDS: Folic Acid 1 MG Tablet PO (09:27)
[2022-12-16] MEDS: Enoxaparin 40 MG/0.4 ML Syringe SC (09:33)
--- NOTE | 2022-12-16 10:02 | DCINST_ITS ---
Discharge Instructions Diet Discharge Diet: No restrictions Activity Discharge Activity: Return to Normal Activity and May Not Drive Weight Bearing Status: No weight bearing (No weightbearing on right hand.) Dressing / Incision Call your doctor if you observe: Fever of 101 or Higher, Coldness, Increased Pain, Numbness or Tingling, Change in Color, Inability to urinate, Inability to have a bowel movement, Shortness of breath, Dizziness, Fainting spells, Swelling in the ankles, Chest pain, Prolonged hiccupping, Increased palpitations (irregular heartbeat) and Calf discomfort Follow Up Care When: IN 2 WEEKS Test Results: Test results from this visit will be discussed in further detail at your follow- up appointment, if applicable. Discharge Plan Admission Admit Date/Time: 12/14/22 19:10 Primary Reason for Your Visit: Right hand infection Attending Provider: Paul Michael Primary Care Provider: Valentino Wright Consulting Providers: Paul Dickerson ; Brenda Cantu ; Bill Michel Instructions Additional Instructions / Restrictions: He should leave his dressing on clean and dry for the next 72 hours then may remove and wash gently with antibacterial soap and warm water but do not encourage immediate finger range of motion No heavy lifting must keep clean.? He should have his sutures removed in 2 weeks. Discharge Orders/Prescriptions Prescriptions: New doxycycline hyclate 100 mg capsule 100 mg PO BID Qty: 14 0RF cephalexin 500 mg capsule 500 mg PO TID Qty: 20 0RF thiamine HCl (vitamin B1) [Vitamin B-1] 100 mg Tablet 100 mg PO DAILYCM Qty: 30 0RF folic acid 1 mg Tablet 1 mg PO BREAKFAST Qty: 30 2RF oxycodone 5 mg Tablet 2.5 mg PO Q4H PRN PRN (Reason: Pain Score 4-10) 3 Days Qty: 10 0RF Rx Instructions: 2.5 mg for 4-6/10 moderate pain and 5 mg for 7-10/10 severe pain indomethacin 25 mg Capsule 25 mg PO TIDCM 7 Days Qty: 21 0RF allopurinol 100 mg tablet 100 mg PO DAILY Qty: 30 2RF Rx Instructions: Start 100 mg once daily for 1 week and then increase to 200 mg once daily to continue. pantoprazole [Protonix] 40 mg tablet,delayed release (DR/EC) 40 mg PO DAILY Qty: 30 0RF Referrals / Follow Up: Valentino Wright MD [Primary Care Provider] - Within 2 Weeks Paul Dickerson DO [Med Staff - Active Staff] - In 1 Week Disposition Disposition (needs filled in before D/C Order can be placed): Home, Self Care
--- NOTE | 2022-12-16 10:50 | PCM.CONS.GEN ---
Assessment & Plan Assessment/Plan (1) Crystal arthropathy: PLAN: Now s/p OR this Am 12/16/[address] Dickerson. Crystal deposition-like white substance seen. Cx pending. Also with involvement of R 1st MTP and h/o etoh abuse. Suspect pseudogout given normal uric acid. Encouraged stopping etoh abuse, going to AA as he has in the past. On vanc/ceftriaxone, ok for home with one week doxy/keflex while cx is pending. Will follow as needed, thank you, d/w Dr. Michael and Dr. Dickerson. HPI Consult Data Date of Consult: 12/16/22 HPI Narrative Reason for Consultation: hand cellulitis HPI Narrative: TRACIE SAUNDERS, is a 57 M with h/o alcohol abuse, presented 12/15 with 3-4 days progressive R hand pain, swelling, redness, warmth. No montaño on hand, no known inciting event, no drainage, no h/o skin abscess or MRSA infection. No fever or chills. Pain was moderate. He is R handed. Came to ED, seen by ortho, started on vanc/ceftriaxone. Redness improved, taken to OR this AM, crystal deposition seen. Feeling better, but now some pain, swelling, redness in L 1st MTP. Full ROS performed and neg except as noted above. PFSH Medical History Alcohol abuse Tobacco use Medical History no medical history Home Medications cephalexin 500 mg capsule 500 mg PO TID #20 caps 12/16/22 [Rx Last Taken Unknown] doxycycline hyclate 100 mg capsule 100 mg PO BID #14 caps 12/16/22 [Rx Last Taken Unknown] Allergy/AdvReac Type Severity Reaction Status Date / Time No Known Allergies Allergy Verified 12/14/22 17:44 Family History (Updated 12/14/22 @ 23:[address] Brenda Cantu MD) Mother Heart disease Family History other Surgical History (Updated 12/14/22 @ 23:[address] Brenda Cantu MD) No history of previous surgery Surgical History no surgical history Social History (Updated 12/14/22 @ 23:[address] Brenda Cantu MD) Smoking Status: Current every day smoker tobacco type: cigarettes Smoking packs per day: 1.5 Smoking cigarettes per day: 30.0 alcohol intake: current alcohol intake frequency: 3 or more drinks per day details: Drinks 6-8 beers 5x/week. substance use type: does not use Physical Exam Const alert, oriented x3 and no apparent distress General Appearance: cooperative HEENT normocephalic and head/scalp atraumatic Eyes PERRL and EOMs intact bilaterally Neck supple and No nodes Resp normal air movement and clear to auscultation bilaterally Cardio regular rate and regular rhythm GI soft to palpation, non-tender and non-distended Extremity General Extremity: Negative for edema Skin Skin Narrative: R hand wrapped. Some mild redness, soreness over R 1st MTP. Neuro CN's II-XII intact bilaterally Lab / Micro Data Attestation: I reviewed the patient's lab results. Result Diagrams: 12/15/22 05:40 12/15/22 05:40 Labs: Laboratory Results - last 24 hr 12/14/22 18:05: Diff Path Review Reviewed 12/15/22 05:40: Diff Path Review Reviewed 12/16/22 07:05: Vancomycin Trough 14.5 Radiology Impression Upper Extremity MRI 12/15/22 07:44 IMPRESSION: Arthritic change. Soft tissue swelling. Effusions at the metacarpophalangeal joints. No MR evidence of osteomyelitis. Electronically Signed: Ruel Lee MD at 18:53 EST , Orbit X-Ray 12/15/22 11:00 IMPRESSION: No demonstrated metallic orbital foreign body. The patient is cleared for an MRI examination. Electronically Signed: Oseas Stephenson MD at 11:15 EST ,
--- NOTE | 2022-12-16 11:07 | CASEMGMT ---
Addendum entered by Denise Gonzalez 12/16/22 11:16: Correction: Noted no dressing changes for pt. RN CM in to pt room. Pt has local healthcare directory to obtain PCP. Pt is aware he has medications ordered and will take his printout of insurance info to give to pharmacy. Pt denies any homegoing needs and is happy to be dc'd. Pt aware to follow with and orders for wound. Original Note: Noted not dressing changes for pt and po atb.
--- NOTE | 2022-12-16 11:08 | DS.PCM_ITS ---
Providers Date of Admission: 12/14/22 Date of Discharge: 12/16/22 Primary Care Physician: Dr. Valentino Wright MD Consultations 12/14/22 20:40 Consult: Orthopedics Routine Consulting Provider: Paul Dickerson Reason for Consult: R hand infectious tenosynovitis EMERGENT Consult: No Notified: Yes Date Notified: 12/14/22 Time Notified: 19:11 Method of Notification: ED Physician Initiated 12/16/22 08:51 Consult: Infectious Disease Routine Consulting Provider: Bill Michel Reason for Consult: septic joint MCP right index and middle EMERGENT Consult: No Notified: Yes Date Notified: 12/16/22 Time Notified: 08:51 Method of Notification: Verbal Reason For Visit: R HAND INFECTIOUS TENOSYNOVITIS Diagnosis Discharge Diagnosis (1) Crystal arthropathy: Status: Acute Code(s): M11.9 - Crystal arthropathy, unspecified (2) Septic arthritis of hand, right: Status: Acute Code(s): M00.9 - Pyogenic arthritis, unspecified Plan The patient is a 57 y/o M is being admitted on 12/14/22 for right hand discomfort and swelling for over 3 days consistent with hand cellulitis/infectious tenosynovitis #1. Coexistence of right hand septic arthritis of second and third MC joint and acute gouty arthritis: Spontaneous onset with progression over 3 days, no fever or chill or inciting trigger/trauma. Tmax 99.5 Fahrenheit. On IV antibiotic ceftriaxone and vancomycin, orthopedic surgery consulted, limb elevation, pain control and other supportive treatment. 12/16: Patient was taken to the OR today. Right index and middle MCP joint was washed out and tissue for crystal deposition Was found consistent with gout. Intraoperative fluid cultures were sent. Dr. Dickerson talked to pathologist and found monosodium urate crystals on intraoperative specimen. Uric acid 7. CRP and ESR elevated. Patient is started on indomethacin 25 mg 3 times daily. Patient has history of swollen left great toe recently which resolved on its own. ID was consulted by Dr. Dickerson. Patient is discharged on Keflex and doxycycline. Prescriptions given for indomethacin, allopurinol, oxycodone and Protonix. Patient advised to start allopurinol from tomorrow 100 mg daily for 1 week and increase to 200 mg once daily to continue follow with PCP. Follow with Dr. Dickerson in 1 week. #2. Acute kidney injury: Unclear baseline renal function is no labs prior, a dmission BUN/Cr 22/1.65. Patient on IV fluid. BUN/creatinine improved from 22/1.65-15/0.91. AURORA resolved. With rapid recovery it seems patient had AURORA most probably due to prerenal etiology #3. Elevated BP without hypertensive history: BP has improved. Patient will need either home BP monitoring or a BP or diagnosis of hold for SBP less than 130 mmHg #4. EtOH Abuse: Patient notes routine consumption of 6-8 beers per day 5 times weekly. Monitor with CIWA protocol, MVI, thiamine and folic acid. Case management consulted. #5. Tobacco Abuse: Encouraged cessation, inpatient consultation per RT, NR if desired. #6. Obesity: Weight loss and lifestyle changes encouraged. #7. DVT prophylaxis: SCDs, enoxaparin 40 mg subcu daily. #8. CODE STATUS: Full code. Discharge medication reconciliation done. Discharge follow-up instructions completed. Discharge process discussed with the patient and all questions were answered to patient's satisfaction. Total time spent, exact 35 minutes on discharge meds reconciliation, examination, coordination of care with nurses and ancillary staff, review of imaging and blood test and discussion with the patient on follow-up instructions. Medications at Discharge Home Medications allopurinol 100 mg tablet 100 mg PO DAILY #30 tabs 12/16/22 cephalexin 500 mg capsule 500 mg PO TID #20 caps 12/16/22 doxycycline hyclate 100 mg capsule 100 mg PO BID #14 caps 12/16/22 folic acid 1 mg tablet 1 mg PO BREAKFAST #30 tabs 12/16/22 indomethacin 25 mg capsule 25 mg PO TIDCM 7 days #21 caps 12/16/22 oxycodone 5 mg tablet 2.5 mg PO Q4H PRN PRN Pain Score 4-10 3 days #10 tabs 0 12/16/22 pantoprazole 40 mg tablet,delayed release (Protonix) 40 mg PO DAILY #30 tabs 12/16/22 thiamine HCl (vitamin B1) 100 mg tablet (Vitamin B-1) 100 mg PO DAILYCM #30 tabs 12/16/22 Physical Exam Narrative Seen and examined. Patient works with [employer], welding. Patient denies any injury or splinter in his knowledge. No fever or chills. Patient was taken to the OR and had a washout of right second and third MC joint. No subcutaneous or major tenosynovitis found. Physical exam General: Alert, Oriented x3, Cooperative HEENT: Atraumatic, PERRLA, EOMI, Normocephalic Oral: No Gingival or Mucosal Lesions/ Ulcerations Neck: Supple, No JVD, Negative Carotid Bruits Lungs: Air entry diminished in bilateral lung bases. No crepitation/rhonchi Cardiovascular: Regular rate, Regular Rhythm, Normal S1, Normal S2, No murmurs Abdomen: Bowel Sounds Present, Soft, Non Tender, Non-Distended : No renal angle tenderness. No suprapubic tenderness. Extremities: No edema, Capillary Refill Less than 3 Seconds Skin: Mild redness erythema present over dorsal aspect of hand Musculoskeletal: Swelling of right hand mainly on the dorsal aspect including fingers. Dressing of the right hand with Federico wrap bandage. Radial and ulnar artery palpable. Neurological: Cranial nerves II-XII grossly intact, DTR 2+/4 and Symmetrical, Neuro grossly intact Psych/Mental Status: Normal Affect, Appropriate. Weight / BMI Weight Weight: 245 lb 9.519 oz Body Mass Index (BMI) 33.3 ABG / Lab / Microbiology Data Result Diagrams: 12/15/22 05:40 12/15/22 05:40 Laboratory: Laboratory Results - last 24 hr 12/14/22 18:05: Diff Path Review Reviewed 12/15/22 05:40: Diff Path Review Reviewed 12/16/22 07:05: Vancomycin Trough 14.5 Radiography Diagnostic Testing: Radiology Impression Upper Extremity MRI 12/15/22 07:44 IMPRESSION: Arthritic change. Soft tissue swelling. Effusions at the metacarpophalangeal joints. No MR evidence of osteomyelitis. Electronically Signed: Ruel Lee MD at 18:53 EST , Orbit X-Ray 12/15/22 11:00 IMPRESSION: No demonstrated metallic orbital foreign body. The patient is cleared for an MRI examination. Electronically Signed: Oseas Stephenson MD at 11:15 EST , D/C Instructions Discharge Diet: No restrictions Weight Bearing Status: No weight bearing (No weightbearing on right hand.) Call your doctor if you observe: Fever of 101 or Higher, Coldness, Increased Pain, Numbness or Tingling, Change in Color, Inability to urinate, Inability to have a bowel movement, Shortness of breath, Dizziness, Fainting spells, Swelling in the ankles, Chest pain, Prolonged hiccupping, Increased palpitations (irregular heartbeat) and Calf discomfort When: IN 2 WEEKS Meaningful Use Info Meaningful Use Diagnoses (Choose all that apply): None applicable Discharge Plan Admission Admit Date/Time: 12/14/22 19:10 Primary Reason for Your Visit: Right hand infection Attending Provider: Paul Michael Primary Care Provider: Valentino Wright Consulting Providers: Paul Dickerson ; Brenda Cantu ; Bill Michel Instructions Additional Instructions / Restrictions: He should leave his dressing on clean and dry for the next 72 hours then may remove and wash gently with antibacterial soap and warm water but do not encourage immediate finger range of motion No heavy lifting must keep clean.? He should have his sutures removed in 2 weeks. Discharge Orders/Prescriptions Prescriptions: New doxycycline hyclate 100 mg capsule 100 mg PO BID Qty: 14 0RF cephalexin 500 mg capsule 500 mg PO TID Qty: 20 0RF thiamine HCl (vitamin B1) [Vitamin B-1] 100 mg Tablet 100 mg PO DAILYCM Qty: 30 0RF folic acid 1 mg Tablet 1 mg PO BREAKFAST Qty: 30 2RF oxycodone 5 mg Tablet 2.5 mg PO Q4H PRN PRN (Reason: Pain Score 4-10) 3 Days Qty: 10 0RF Rx Instructions: 2.5 mg for 4-6/10 moderate pain and 5 mg for 7-10/10 severe pain indomethacin 25 mg Capsule 25 mg PO TIDCM 7 Days Qty: 21 0RF allopurinol 100 mg tablet 100 mg PO DAILY Qty: 30 2RF Rx Instructions: Start 100 mg once daily for 1 week and then increase to 200 mg once daily to continue. pantoprazole [Protonix] 40 mg tablet,delayed release (DR/EC) 40 mg PO DAILY Qty: 30 0RF Referrals / Follow Up: Valentino Wright MD [Primary Care Provider] - Within 2 Weeks Paul Dickerson DO [Med Staff - Active Staff] - In 1 Week Disposition Disposition (needs filled in before D/C Order can be placed): Home, Self Care Charges/Coding Visit Charges Inpatient E&M: 31373 Disch Hosp >30min
[2022-12-16 11:39] VITALS: BP 161/88; PULSE 82; RESP 18; TEMP 36.5; O2SAT 95
== END 2022-12-16 13:00 | disposition home or self-care (01) | DRG 513 ==
LOC: ED 19:10 → MS3 19:18
PROVIDERS: Anesthesiology; Orthopaedic Surgery; Admitting Provider Family Medicine; Emergency Provider Emergency Medicine; PCP Chiropractor; Visit Provider Internal Medicine
PROC: 0J8 Subcutaneous Tissue and Fascia, Division (ICD-10-PCS; CPT 64721; principal; 2022-12-16 07:15)
DX: M00.9 Pyogenic arthritis, unspecified (principal); L03.113 Cellulitis of right upper limb; N17.9 Acute kidney failure, unspecified; N18.30 Chronic kidney disease, stage 3 unspecified; M10.9 Gout, unspecified; M11.9 Crystal arthropathy, unspecified; F10.10 Alcohol abuse, uncomplicated; M65.849 Other synovitis and tenosynovitis, unspecified hand; F17.210 Nicotine dependence, cigarettes, uncomplicated; M79.641 Pain in right hand; I12.9 Hypertensive chronic kidney disease with stage 1 through stage 4 chronic kidney disease, or unspecified chronic kidney disease; M19.049 Primary osteoarthritis, unspecified hand; E66.9 Obesity, unspecified; Z68.33 Body mass index [BMI] 33.0-33.9, adult
CPT/HCPCS: 36415; 70030; 73130; 73218; 80048; 80053; 80202; 82248; 83605; 83735; 84100; 84550; 85025; 85610; 85652; 85730; 86140; 87070; 87075; 87205; 88161; 88304; 88305; 89060; 93005; 94668; 99252; 99284; J7030; J7040; J7050; J7120; G0463; J0696; J2405

== ENCOUNTER → 2024-10-23 | Outpatient (CLI) | payer MEDICAID, SELFPAY ==
[2024-10-23 17:06] LABS: Absolute Lymphocyte Count 2.49 X10^3/uL (0.83-4.51); Absolute Neutrophil Count 4.7 X10^3/uL (2.0-7.7); Basophil# 0.04 X10^3/uL; Basophil% 0.5 % (0-1); Eosinophil# 0.13 X10^3/uL; Eosinophils% 1.5 % (0-5); Hematocrit 44.7 % (40-54); Hemoglobin 14.9 g/dL (13.0-16.5); Lymphocyte # 2.49 X10^3/ul (0.83-4.51); Lymphocyte % 29.2 % (19-41); Mean Corp Hgb Conc 33.3 g/dL (32-36); Mean Corpuscular Hgb 32.4 pg (27.0-32.0); Mean Corpuscular Volume 97.2 fL (80-94); Mean Platelet Vol. 10.3 fl (6.2-12.0); Monocyte# 1.18 X10^3/uL; Monocyte% 13.8 % (0-10); NRBC Flagged by Analyzer 0 % (0-5); Neutrophil # 4.66 X10^3/uL (2.7-7.7); Neutrophil % 54.6 % (47-70); Platelet Count 265 K/mm3 (150-450); RBC Distribution Width CV 13.2 % (11.6-14.6); RBC Distribution Width SD 47.3 fl (35.1-43.9); White Blood Count 8.5 K/mm3 (4.4-11.0)
[2024-10-23 17:36] LABS: ALB/GLOB Ratio 0.9 RATIO (0.9-2.4); AST(SGOT) 60 U/L (15-37); Alanine Aminotransfer ALT/SGPT 56 U/L (16-61); Albumin, Serum 3.5 g/dL (3.2-5.0); Alkaline Phosphatase 95 U/L (45-117); Anion Gap 8 (5-15); BUN 15 mg/dL (7-18); BUN/Creat Ratio 18.9 RATIO (10-20); Calcium,Total 9.6 mg/dL (8.5-10.1); Chloride 104 mmol/L (98-107); Cholesterol 287 mg/dL (200); EST Glomerular Filtration Rate 107 mL/min (>60); Est Glom Filt Rate - Afr Amer 129 mL/min (>60); Globulin 4.1 g/dL (2.2-4.2); Glucose 124 mg/dL (74-106); High Density Lipoprotein 37 mg/dL; Potassium 4.4 mmol/L (3.5-5.1); Protein, Total 7.6 g/dL (6.4-8.2); Sodium Level 136 mmol/L (136-145); Triglycerides 1117 mg/dL
== END | disposition home or self-care (01) ==
LOC: VSLAB 12:16
PROVIDERS: PCP Family Medicine
DX: I10 Essential (primary) hypertension (principal); Z13.220 Encounter for screening for lipoid disorders
CPT/HCPCS: 36415; 80053; 80061; 84443; 85025

== ENCOUNTER → 2024-11-06 | Outpatient (CLI) | payer MEDICAID, SELFPAY ==
[2024-11-06 18:39] LABS: Anion Gap 7 (5-15); BUN 11 mg/dL (7-18); BUN/Creat Ratio 12.4 RATIO (10-20); Calcium,Total 10.4 mg/dL (8.5-10.1); Chloride 105 mmol/L (98-107); Creatinine, Serum 0.89 mg/dL (0.70-1.30); EST Glomerular Filtration Rate 94 mL/min (>60); Est Glom Filt Rate - Afr Amer 114 mL/min (>60); Glucose 98 mg/dL (74-106); Potassium 3.9 mmol/L (3.5-5.1); Sodium Level 138 mmol/L (136-145)
== END | disposition home or self-care (01) ==
PROVIDERS: PCP Family Medicine
DX: I10 Essential (primary) hypertension (principal)
CPT/HCPCS: 36415; 80048